=== PATIENT | male | born 1960 | race Two or more races ===

== ENCOUNTER 2020-12-28 11:35 | Outpatient (CLI) | payer OTHER | END 2020-12-28 11:36 | disposition home or self-care (01) | LOC: PPH VACUNA 11:35 | DX: Z23 Encounter for immunization (principal) ==

== ENCOUNTER → 2021-01-18 | Outpatient (CLI) | payer OTHER | END | disposition home or self-care (01) | LOC: PPH VACUNA | DX: Z23 Encounter for immunization (principal) ==

== ENCOUNTER 2021-09-12 13:15 | Outpatient (CLI) | payer OTHER | END 2021-09-12 13:40 | disposition home or self-care (01) | LOC: PPH VACUNA 13:15 | PROVIDERS: ATTEND Emergency Medicine Pediatric Emergency Medicine | DX: Z23 Encounter for immunization (principal) ==